=== PATIENT | male | born 1955 | race African-American/Black ===

== ENCOUNTER 2022-06-08 10:15 | Emergency (ER) | payer OTHER ==
[~2022-06-08] VITALS: Ht 170.2 cm; Wt 102.1 kg
[2022-06-08] MEDS ORDERED: METHYLPREDNISOLONE SOD SUCC 125 MG/2ML VIAL IV STA (10:53)
[2022-06-08] MEDS ORDERED: ALBUTEROL/IPRATROPIUM 3 ML NEB NEB ONE (11:00)
[2022-06-08] MEDS ORDERED: PREDNISONE20 MG PO (13:08)
[2022-06-08] MEDS ORDERED: VENTOLIN HFA18 GM INH (13:08)
[2022-06-08 13:26] VITALS: BP 139/85
== END 2022-06-08 13:29 | disposition home or self-care (01) ==
LOC: ER 10:30
DX: R06.02 Shortness of breath (principal); Z57.5 Occupational exposure to toxic agents in other industries; J45.901 Unspecified asthma with (acute) exacerbation; Y99.0 Civilian activity done for income or pay; I10 Essential (primary) hypertension; E11.9 Type 2 diabetes mellitus without complications; I25.10 Atherosclerotic heart disease of native coronary artery without angina pectoris
CPT/HCPCS: 71045; 94640; 94799; 99284; J2930